=== PATIENT | male | born 1995 | race Caucasian/White ===

== ENCOUNTER 2017-11-07 16:38 | Emergency (ER) | payer BC ==
[~2017-11-07] VITALS: Ht 167.6 cm; Wt 105.0 kg
[~2017-11-07 16:38] MED LIST: LORTAB 5-325 M1 EACH PO; MOTRIN600 MG PO
[2017-11-07 17:26] LABS: HEMATOCRIT 43.6 % (38.0-50.0); HEMOGLOBIN 15.1 G/DL (12.5-16.6); MCH 30.8 PG (29.0-34.0); MCHC 34.6 G/DL (30.0-36.0); PLATELET COUNT 274 K/uL (156-360); RBC DIS.WIDTH-CV 12.6 % (11.8-14.6); RBC DIS.WIDTH-SD 40.8 % (39-53)
[2017-11-07 17:39] LABS: CHLORIDE 103 mEq/L (99-109); POTASSIUM 4.6 mEq/L (3.7-5.4); SODIUM 142 mEq/L (136-147)
[2017-11-07 17:41] LABS: GLUCOSE 102 mg/dL (70-99)
[2017-11-07 17:45] LABS: CREATININE 0.9 mg/dL (0.6-1.3); GFR ESTIMATE (CALCULATED) > 59 mL/min/ (58.99-99999)
[2017-11-07 17:46] LABS: UREA NITROGEN (BUN) 14 mg/dL (9-23)
[2017-11-07 20:25] VITALS: BP 121/63
== END 2017-11-07 20:24 | disposition home or self-care (01) ==
LOC: EME 16:38
DX: G43.909 Migraine, unspecified, not intractable, without status migrainosus (principal); R00.1 Bradycardia, unspecified; F17.200 Nicotine dependence, unspecified, uncomplicated; Z86.69 Personal history of other diseases of the nervous system and sense organs; Z91.048 Other nonmedicinal substance allergy status
CPT/HCPCS: 80048; 81003; 85027; 93005; 99281; 99284; J1200; J1885; J2405; J2765; J7030